=== PATIENT | female | born 1965 | race Caucasian/White ===

== ENCOUNTER 2016-09-04 17:43 | Emergency (ER) | payer BC, OTHER ==
[2016-09-04 17:51] VITALS: BP 141/97
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
== END 2016-09-04 19:29 | disposition home or self-care (01) ==
LOC: UCEAST 17:43
DX: S16.1XXA Strain of muscle, fascia and tendon at neck level, initial encounter (principal); V43.52XA Car driver injured in collision with other type car in traffic accident, initial encounter; Y93.89 Activity, other specified; Y92.410 Unspecified street and highway as the place of occurrence of the external cause; M47.812 Spondylosis without myelopathy or radiculopathy, cervical region; R03.0 Elevated blood-pressure reading, without diagnosis of hypertension; Z88.1 Allergy status to other antibiotic agents; Z87.891 Personal history of nicotine dependence
CPT/HCPCS: 72125; 99212; G0463

== ENCOUNTER 2017-01-30 12:38 | Emergency (ER) | payer BC, OTHER ==
[2017-01-30 12:57] VITALS: BP 134/89
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
== END 2017-01-30 13:27 | disposition home or self-care (01) ==
LOC: UCCORT 12:38
DX: N93.9 Abnormal uterine and vaginal bleeding, unspecified (principal); Z88.1 Allergy status to other antibiotic agents; Z87.891 Personal history of nicotine dependence
CPT/HCPCS: 81003; 87086; 99212; G0463

== ENCOUNTER 2018-02-26 13:32 | Emergency (ER) | payer BC ==
[2018-02-26 13:51] VITALS: BP 128/85
--- NOTE | 2018-02-26 14:02 | UC ---
Throat Pain/Nasal Ra HPI - HPI Summary HPI Summary: Pt presents with c/o cough, nasal congestion, sinus pressure and pain X 7 days. - History of Current Complaint Chief Complaint: [facility] Stated Complaint: UPPER RESPIRATORY, SINUS COMPLAINT Time Seen by Provider: 02/26/18 13:46 Hx Obtained From: Patient Hx Last Menstrual Period: ablasion ?: No Onset/Duration: Sudden Onset, Lasting Days, Still Present Severity: Severe Pain Intensity: 10 Associated Signs & Symptoms: Positive: Sinus Discomfort, Fever - Epiglottits Risk Factors Epiglottis Risk Factors: Negative - Allergies/Home Medications Allergies/Adverse Reactions: Allergies Allergy/AdvReac Type Severity Reaction Status Date / Time amoxicillin [From Augmentin] AdvReac GI Upset Verified 02/26/18 13:52 clavulanic acid AdvReac GI Upset Verified 02/26/18 13:52 [From Augmentin] PMH/Surg Hx/FS Hx/Imm Hx Previously Healthy: Yes - Surgical History Surgical History: Yes Surgery Procedure, Year, and Place: ablation. right ear tube - Family History Known Family History: Positive: Cardiac Disease - AFib, Diabetes, Other - af Negative: Renal Disease - Social History Alcohol Use: Rare Substance Use Type: None Smoking Status (MU): Former Smoker Amount Used/How Often: quit 32 years ago Have You Smoked in the Last Year: No - Immunization History Most Recent Tetanus Shot: stated up to date Vaccination Up to Date: Yes Review of Systems All Other Systems Reviewed And Are Negative: Yes Constitutional: Positive: Fever, Chills, Fatigue Skin: Positive: Negative Eyes: Positive: Negative ENT: Positive: Sinus Congestion, Sinus Pain/Tenderness Respiratory: Positive: Cough Cardiovascular: Positive: Negative Gastrointestinal: Positive: Negative Genitourinary: Positive: Negative Motor: Positive: Negative Neurovascular: Positive: Negative Musculoskeletal: Positive: Negative Neurological: Positive: Headache Psychological: Positive: Negative Is Patient Immunocompromised?: No Physical Exam Triage Information Reviewed: Yes Appearance: Ill-Appearing Vital Signs: Initial Vital Signs Temp 98.6 F 02/26/18 13:48 Pulse 88 02/26/18 13:48 Resp 18 02/26/18 13:48 BP 128/85 02/26/18 13:48 Pulse Ox 100 02/26/18 13:48 Vital Signs Reviewed: Yes Eye Exam: Normal ENT: Positive: Nasal congestion, TM bulging, Sinus tenderness Dental Exam: Normal Neck exam: Normal Respiratory Exam: Normal Cardiovascular Exam: Normal Musculoskeletal Exam: Normal Neurological Exam: Normal Psychological Exam: Normal Skin Exam: Normal Throat Pain/Nasal Course/Dx - Differential Dx/Diagnosis Differential Diagnosis/HQI/PQRI: Influenza, Sinusitis, Tonsillitis, URI Provider Diagnosis: Sinusitis, acute Discharge - Sign-Out/Discharge Documenting (check all that apply): Patient Departure All imaging exams completed and their final reports reviewed: No Studies - Discharge Plan Condition: Stable Disposition: HOME Prescriptions: Azithromycin TAB* [Zithromax TAB (Z-PO) 250 mg #6 tabs] 2 tab PO .TODAY, THEN 1 DAILY #1 po Benzonatate CAP* [Tessalon 100 MG CAP*] 200 mg PO Q8H PRN #30 cap PRN Reason: Cough Patient Education Materials: Sinusitis (ED) Referrals: Etta Ruiz MD [Primary Care Provider] - If Needed - Billing Disposition and Condition Condition: STABLE Disposition: Home - Attestation Statements Provider Attestation: Per institutional requirements, I have reviewed the chart, however, I was not consulted specifically or made aware of this patient by the midlevel provider. I did not personally evaluate, interact with , or disposition this patient.
== END 2018-02-26 14:12 | disposition home or self-care (01) ==
LOC: UCCORT 13:32
DX: J01.90 Acute sinusitis, unspecified (principal); Z88.0 Allergy status to penicillin; Z88.8 Allergy status to other drugs, medicaments and biological substances; Z87.891 Personal history of nicotine dependence
CPT/HCPCS: 99212; G0463

== ENCOUNTER 2018-04-05 09:50 | Emergency (ER) | payer BC ==
[2018-04-05 09:56] VITALS: BP 145/97
--- NOTE | 2018-04-05 11:08 | UC ---
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 Developed sore throat, sinus pressure x 4 days ago. Today has progressive cough with uncomfortable sensation in her chest reminiscent of pneumonia, which she has had in the past. Mildly short of breath with persistent malaise and headache. - History of Current Complaint Chief Complaint: [facility] Stated Complaint: CONGESTION,COUGH Time Seen by Provider: 04/05/18 10:59 Hx Obtained From: Patient Hx Last Menstrual Period: ablasion Onset/Duration: Gradual Onset, Lasting Days - 5 Pain Intensity: 0 Cough: Nonproductive Associated Signs & Symptoms: Positive: Hoarseness, Sinus Discomfort, Nasal Discharge - Epiglottits Risk Factors Epiglottis Risk Factors: Negative - Allergies/Home Medications Allergies/Adverse Reactions: Allergies Allergy/AdvReac Type Severity Reaction Status Date / Time amoxicillin [From Augmentin] AdvReac GI Upset Verified 04/05/18 09:56 clavulanic acid AdvReac GI Upset Verified 04/05/18 09:56 [From Augmentin] Home Medications: Home Medications Acetaminophen TAB* [Tylenol TAB*] 325 mg PO Q4H PRN 04/05/18 [History Confirmed 04/05/18] PMH/Surg Hx/FS Hx/Imm Hx Previously Healthy: Yes - history of back injury Cardiovascular History: Other - borderline hypertension, has been doing home monitoring. - Surgical History Surgical History: Yes Surgery Procedure, Year, and Place: ablation. right ear tube - Family History Known Family History: Positive: Cardiac Disease - AFib, Diabetes, Other - af Negative: Renal Disease - Social History Occupation: Employed Full-time Lives: With Family Alcohol Use: Rare Substance Use Type: None Smoking Status (MU): Former Smoker Amount Used/How Often: quit 32 years ago Have You Smoked in the Last Year: No When Did the Patient Quit Smoking/Using Tobacco: 33 years ago - Immunization History Most Recent Tetanus Shot: stated up to date Vaccination Up to Date: Yes Review of Systems All Other Systems Reviewed And Are Negative: Yes Constitutional: Positive: Fatigue Skin: Positive: Negative Eyes: Positive: Negative ENT: Positive: Sore Throat, Ear Ache, Nasal Discharge Respiratory: Positive: Cough Cardiovascular: Positive: Negative Gastrointestinal: Positive: Negative Genitourinary: Positive: Negative Motor: Positive: Negative Neurovascular: Positive: Negative Musculoskeletal: Positive: Negative Neurological: Positive: Headache Psychological: Positive: Negative Is Patient Immunocompromised?: No Physical Exam Triage Information Reviewed: Yes Completion Of Physical Exam Limited Due To: Patient is uncooperative with exam - mildly unwell Appearance: Ill-Appearing Vital Signs: Initial Vital Signs Temp 98.8 F 04/05/18 09:51 Pulse 110 04/05/18 09:51 Resp 20 04/05/18 09:51 BP 145/97 04/05/18 09:51 Pulse Ox 100 04/05/18 09:51 Eyes: Positive: Conjunctiva Clear ENT: Positive: Pharyngeal erythema, TM dull - bilaterally. Negative: TM red Neck: Positive: Supple, No Lymphadenopathy, Tenderness @ - posterior cervical nodes. Respiratory: Positive: No respiratory distress, Decreased breath sounds, Rhonchi - coarse rales right chest. Cardiovascular: Positive: RRR, No Murmur Musculoskeletal Exam: Normal Neurological: Positive: Alert, Muscle Tone Normal Psychological Exam: Normal Skin Exam: Normal Throat Pain/Nasal Course/Dx - Course Course Of Treatment: doxycycline for treatment of sinusitis, possible early pneumonia. - Differential Dx/Diagnosis Differential Diagnosis/HQI/PQRI: Pharyngitis, Sinusitis, Other - lower respiratory infection. Provider Diagnosis: Sinusitis, acute Discharge - Sign-Out/Discharge Documenting (check all that apply): Patient Departure All imaging exams completed and their final reports reviewed: No Studies - Discharge Plan Condition: Stable Disposition: HOME Prescriptions: DOXYcycline CAP(*) [DOXYcycline 100MG CAP(*)] 100 mg PO BID #20 cap Patient Education Materials: Sinusitis (ED) Referrals: Etta Ruiz MD [Primary Care Provider] - Additional Instructions: Begin doxycycline for treatment of sinusitis and possible early pneumonia. Increase rest and fluids. This antibiotic could be taken with food, but avoid dairy either 1 hour before or 2 hours after a dose. - Billing Disposition and Condition Condition: STABLE Disposition: Home
== END 2018-04-05 11:30 | disposition home or self-care (01) ==
LOC: UCEAST 09:50
DX: J01.90 Acute sinusitis, unspecified (principal); Z88.0 Allergy status to penicillin; Z87.891 Personal history of nicotine dependence
CPT/HCPCS: 99212; G0463